=== PATIENT | female | born 1990 | race Caucasian/White ===

== ENCOUNTER 2017-04-06 03:10 | Observation (INO) | payer BC ==
[~2017-04-06] VITALS: Ht 170.2 cm; Wt 78.0 kg
[2017-04-06] MEDS ORDERED: SODIUM CHLORIDE FLUSH 10ML SYR IVF ONE (03:30)
[2017-04-06] MEDS ORDERED: HYDROmorphone 1 MG/ML, 1ML IVPush PRN (03:30)
[2017-04-06] MEDS ORDERED: HYDROmorphone 1 MG/ML, 1ML ONE (04:00)
[2017-04-06] MEDS ORDERED: BUPIVACAINE/PF-EPI 0.5% 1:200K ONE (04:36)
[2017-04-06] MEDS ORDERED: BUPIVACAINE/PF 0.25% ONE (04:37)
[2017-04-06] MEDS ORDERED: FENTANYL PF 100 MCG/2ML ONE ×3 (04:47→05:55)
[2017-04-06] MEDS ORDERED: MIDAZOLAM 1 MG/ML, 2ML ONE (04:47)
[2017-04-06] MEDS ORDERED: PROPOFOL 10 MG/ML, 20ML ONE (04:48)
[2017-04-06] MEDS ORDERED: DEXAMETHASONE 4 MG/ML, 1ML ONE (04:48)
[2017-04-06] MEDS ORDERED: CEFAZOLIN 1,000 MG ONE (04:48)
[2017-04-06] MEDS ORDERED: ONDANSETRON 2MG/ML, 2ML ONE (04:48)
[2017-04-06] MEDS ORDERED: SUCCINYLCHOLINE 20 MG/ML, 10ML ONE (04:48)
[2017-04-06] MEDS ORDERED: PHENYLEPHRINE 10 MG/ML ONE (04:48)
[2017-04-06] MEDS ORDERED: BUPIVACAINE/PF-EPI 0.5% 1:200K IM ONE (05:09)
[2017-04-06] MEDS ORDERED: SILVER NITRATE STICK TP ONE (05:35)
[2017-04-06] MEDS ORDERED: ACETAMINOPHEN 650 MG/20.3 ML UDC ONE (05:55)
[2017-04-06] MEDS ORDERED: OXYcodone 5 MG/5 ML ORAL.SOL UDC ONE (05:56)
[2017-04-06] MEDS ORDERED: EPHEDRINE 50 MG/ML, 1ML IVPush PRN (06:00)
[2017-04-06] MEDS ORDERED: MIDAZOLAM 1 MG/ML, 2ML IV PRN (06:00)
[2017-04-06] MEDS ORDERED: PROMETHAZINE 25 MG/ML, 1ML IV PRN (06:00)
[2017-04-06] MEDS ORDERED: HYDROmorphone 1 MG/ML, 1ML IV PRN (06:00)
[2017-04-06] MEDS ORDERED: MEPERIDINE/PF 25MG/0.5ML IVPush PRN (06:00)
[2017-04-06] MEDS ORDERED: ACETAMINOPHEN 325 MG TABLET PO PRN (06:00)
[2017-04-06] MEDS ORDERED: OXYcodone 5 MG/5 ML ORAL.SOL UDC PO PRN (06:00)
[2017-04-06] MEDS ORDERED: ONDANSETRON 2MG/ML, 2ML IVPush PRN ×2 (06:00→06:30)
[2017-04-06] MEDS ORDERED: FENTANYL PF 100 MCG/2ML IV PRN (06:00)
[2017-04-06] MEDS ORDERED: HYDROcodone/APAP 7.5-325MG/15ML UDC PO PRN (06:00)
[2017-04-06] MEDS ORDERED: MEPERIDINE/PF 25MG/0.5ML ONE (06:06)
[2017-04-06] MEDS ORDERED: LACTATED RINGERS 1,000 ML IV SCH (06:06)
[2017-04-06] MEDS ORDERED: HYDROcodone/APAP 5/325 TABLET PO PRN (06:30)
[2017-04-06] MEDS ORDERED: IBUPROFEN 600 MG TABLET PO PRN (06:30)
[2017-04-06] MEDS ORDERED: PROMETHAZINE 25 MG SUPP PR ONE (06:30)
[2017-04-06 07:39] VITALS: BP 104/54
== END 2017-04-06 11:35 | disposition home or self-care (01) ==
LOC: ED 04:19 → EDIP 04:20 → ED 04:22 → 4NOR 07:00
PROVIDERS: ADMIT Obstetrics & Gynecology Female Pelvic Medicine and Reconstructive Surgery; ATTEND Obstetrics & Gynecology Female Pelvic Medicine and Reconstructive Surgery
DX: O26.851 Spotting complicating pregnancy, first trimester (principal); O26.891 Other specified pregnancy related conditions, first trimester; R10.2 Pelvic and perineal pain; R00.0 Tachycardia, unspecified; O99.211 Obesity complicating pregnancy, first trimester; Z3A.01 Less than 8 weeks gestation of pregnancy
CPT/HCPCS: 36415; 59151; 86850; 86900; 86923; 88305; 96374; 99285; G0378; J0330; J0690; J1100; J1170; J2175; J2250; J2370; J2405; J2704; J3010; J3490